=== PATIENT | female | born 1990 | race Caucasian/White ===

== ENCOUNTER 2022-12-17 18:41 | Emergency (ER) | payer SELFPAY ==
[~2022-12-17] VITALS: Ht 152.4 cm; Wt 73.9 kg
[2022-12-17] MEDS ORDERED: IBUPROFEN 800 MG TABLET PO ONE (19:00)
[2022-12-17] MEDS ORDERED: IBUPROFEN 800 MG TABLET ONE (19:25)
[2022-12-17] MEDS ORDERED: IBUP-1955 PO (19:35)
[2022-12-17 20:01] VITALS: BP 130/87; TEMP 98.5; O2SAT 99
== END 2022-12-17 20:02 | disposition home or self-care (01) ==
LOC: ER 18:48
DX: S16.1XXA Strain of muscle, fascia and tendon at neck level, initial encounter (principal); S43.51XA Sprain of right acromioclavicular joint, initial encounter; Z79.1 Long term (current) use of non-steroidal anti-inflammatories (NSAID); W18.39XA Other fall on same level, initial encounter; Y93.89 Activity, other specified; Y92.89 Other specified places as the place of occurrence of the external cause; Y99.8 Other external cause status
CPT/HCPCS: 73030; 73562; A4663